=== PATIENT | female | born 2000 | race Two or more races ===

== ENCOUNTER 2024-06-27 10:50 | Inpatient (IN) | payer OTHER ==
[2024-06-27] MEDS ORDERED: BETAMET ACET/BETAMET NA PH 30 MG/5 ML VIAL ONE (12:34)
[2024-06-27] MEDS: LACTATED RINGERS SOLUTION 500 ML IV ONE (12:50)
[2024-06-27 12:51] VITALS: BMI 40.6
[2024-06-27] MEDS: BETAMET ACET/BETAMET NA PH 30 MG/5 ML VIAL IM ONE (12:51)
[2024-06-27 13:04] LABS: BASO % 0.2 % (0-2.0); EOS % 1.1 % (0-4.5); HEMOGLOBIN 12.5 GM/dL (10.7-15.3); LYMPH % 16.9 % (8-40); MCH 29.5 pg (25.7-33.7); MCHC 32.9 g/dl (32.0-36.0); MEAN CELL VOLUME 89.5 fl (80-96); MEAN PLT VOLUME 8.9 fl (7.5-11.1); MONO % 11.2 % (3.8-10.2); NEUT % 70.6 % (42.8-82.8); PLATELET COUNT 262 10^3/uL (134-434); RBC 4.24 M/mm3 (3.60-5.2); RDW 13.6 % (11.6-15.6); WHITE BLOOD COUNT 10.9 K/mm3 (4.0-10.0)
[2024-06-27 13:12] LABS: INR 0.95 (0.83-1.09); PROTHROMBIN TIME (PATIENT) 10.8 SEC (9.7-13.0)
[2024-06-27 13:15] LABS: ACTIVATED PTT 27.2 SECONDS (25.2-36.5)
[2024-06-27] MEDS: LACTATED RINGERS SOLUTION 1,000 ML IV SCH (13:20)
[2024-06-27 13:22] LABS: CALCIUM 9.3 mg/dL (8.5-10.1); POTASSIUM 4.5 mmol/L (3.5-5.1)
[2024-06-27 13:24] LABS: BLOOD UREA NITROGEN 8.7 mg/dL (7-18)
[2024-06-27 13:26] LABS: CREATININE 0.5 mg/dL (0.55-1.3)
[2024-06-27] MEDS: CITRIC ACID/SODIUM CITRATE 30 ML UNIT-DOSE CUP PO ONE (15:57)
[2024-06-27] MEDS ORDERED: ACETAMINOPHEN 325 MG TABLET (FP) PO PRN (16:37)
[2024-06-27] MEDS ORDERED: morphine SULFATE/PF 1 MG/2 ML (2cc Syringe - QUVA) ONE (16:41)
[2024-06-27] MEDS ORDERED: FENTANYL CITRATE/PF 50 MCG/ML VIAL ONE (16:41)
[2024-06-27] MEDS ORDERED: DEXAMETHASONE SOD PHOSPHATE 4 MG/1 ML VIAL ONE (17:12)
[2024-06-27] MEDS ORDERED: ONDANSETRON 4 MG/2 ML VIAL ONE ×2 (17:12)
[2024-06-27] MEDS ORDERED: KETOROLAC TROMETHAMINE 30 MG/1 ML VIAL ONE (17:12)
[2024-06-27] MEDS ORDERED: OXYTOCIN 10 UNITS/ML VIAL ONE ×3 (17:12)
[2024-06-27 17:57] LABS: CORD HCO3 22.2 mmHg (20-29); CORD PCO2 50.9 mmHg (30-78); CORD pH 7.257 (7.14-7.44)
[2024-06-27 18:01] LABS: CORD BASE EXCESS -3.7 mmol/L (0-2); CORD HCO3 22.4 mmHg (20-29); CORD PCO2 44.3 mmHg (30-78); CORD pH 7.321 (7.14-7.44)
[2024-06-27] MEDS: LACTATED RINGERS SOLUTION 1,000 ML/1,000 ML INFUS.BAG IV SCH (18:03)
[2024-06-28] MEDS ORDERED: METHYLERGONOVINE MALEATE 0.2 MG/1 ML AMP IM PRN (06:59)
[2024-06-28] MEDS ORDERED: ACETAMINOPHEN 325 MG TABLET (FP) PO PRN (06:59)
[2024-06-28] MEDS ORDERED: IBUPROFEN 800 MG/8 ML IJ IVPB PRN (06:59)
[2024-06-28] MEDS ORDERED: BENZOCAINE 20% 57 GM BOTTLE TP PRN (06:59)
[2024-06-28] MEDS ORDERED: BENZOCAINE 28 GM HEMORRHOIDAL OINTMENT TP PRN (06:59)
[2024-06-28] MEDS ORDERED: WITCH HAZEL 50% (TUCKS) 40 PAD/JAR PAD TP PRN (06:59)
[2024-06-28] MEDS: OXYTOCIN 20 UNITS in 0.9% NS 20 UNIT/1,000 ML INFUS.BAG IV SCH (08:49)
[2024-06-28] MEDS: PRENATAL VITAMINS W/ FOLIC ACID TABLET (FP) PO SCH (09:50)
[2024-06-28] MEDS: ENOXAPARIN NA (PORCINE) 40 MG/0.4 ML DISP.SYRIN SQ SCH (09:50)
[2024-06-28] MEDS: IBUPROFEN 600 MG TABLET (FP) PO PRN (12:05)
[2024-06-28] MEDS: SIMETHICONE 80 MG TAB.CHEW (FP) PO PRN (17:15)
[2024-06-28] MEDS: oxyCODONE HCL 5 MG TABLET PO PRN (21:25)
[2024-06-29] MEDS: IBUPROFEN 600 MG TABLET (FP) PO PRN (04:33)
[2024-06-29] MEDS ORDERED: BISACODYL 10 MG SUPP.RECT RC PRN (06:59)
[2024-06-29 09:08] LABS: BASO % 0.2 % (0-2.0); EOS % 0.5 % (0-4.5); HEMATOCRIT 33.7 % (32.4-45.2); HEMOGLOBIN 11.1 GM/dL (10.7-15.3); LYMPH % 23.8 % (8-40); MCH 29.6 pg (25.7-33.7); MCHC 32.9 g/dl (32.0-36.0); MEAN CELL VOLUME 90.1 fl (80-96); MEAN PLT VOLUME 8.8 fl (7.5-11.1); NEUT % 63.5 % (42.8-82.8); PLATELET COUNT 235 10^3/uL (134-434); RBC 3.74 M/mm3 (3.60-5.2); RDW 13.8 % (11.6-15.6); WHITE BLOOD COUNT 12.9 K/mm3 (4.0-10.0)
[2024-06-29] MEDS: ALBUTEROL SO4 HFA INHALER IH PRN (15:01)
[2024-06-30] MEDS: oxyCODONE HCL 5 MG TABLET PO PRN (17:04)
[2024-07-01 07:11] LABS: BASO % 0.6 % (0-2.0); EOS % 2.7 % (0-4.5); HEMATOCRIT 36.1 % (32.4-45.2); HEMOGLOBIN 11.7 GM/dL (10.7-15.3); LYMPH % 28.8 % (8-40); MCH 29.6 pg (25.7-33.7); MCHC 32.5 g/dl (32.0-36.0); MEAN CELL VOLUME 90.9 fl (80-96); MEAN PLT VOLUME 8.2 fl (7.5-11.1); MONO % 10.5 % (3.8-10.2); NEUT % 57.4 % (42.8-82.8); PLATELET COUNT 281 10^3/uL (134-434); RBC 3.97 M/mm3 (3.60-5.2); RDW 13.8 % (11.6-15.6); WHITE BLOOD COUNT 11.6 K/mm3 (4.0-10.0)
[2024-07-02 13:29] VITALS: BP 127/78; PULSE 83; RESP 17; TEMP 98.5
== END 2024-07-02 18:40 | disposition home or self-care (01) | DRG 540 ==
LOC: JLDR 10:50 → J3W 20:35
PROVIDERS: ADMIT Obstetrics & Gynecology; ATTEND Obstetrics & Gynecology
PROC: 10D00Z1 Extraction of Products of Conception, Low, Open Approach (ICD-10-PCS; principal; 2024-06-27)
DX: O36.5930 Maternal care for other known or suspected poor fetal growth, third trimester, not applicable or unspecified (principal); O32.8XX0 Maternal care for other malpresentation of fetus, not applicable or unspecified; Z3A.35 35 weeks gestation of pregnancy; Z37.0 Single live birth
CPT/HCPCS: 36415; 36600; 80048; 82803; 85025; 85610; 85730; 86780; 86850; 86900; 86901; 88307-TC; 96372